=== PATIENT | female | born 1975 | race Caucasian/White ===

== ENCOUNTER 2020-08-21 13:44 | Emergency (ER) | payer SELFPAY ==
[~2020-08-21 13:44] MED LIST: ADVAIR 500/501 DISK INH; CLEOCIN HCL150 MG PO; FLORANEX / LACT1 TAB PO; K-DUR20 MEQ PO; PROAIR HFA8.5 GM INH; PROZAC10 MG PO
[2020-08-21 13:57] VITALS: Ht 154.9 cm
[2020-08-21] MEDS ORDERED: LITHIUM CARBON150 MG (13:58)
[2020-08-21 14:26] LABS: BASOPHILS 0.1 % (0-2); EOSINOPHILS 0.6 % (0-7); HEMATOCRIT 41.1 % (36.0-48.0); HEMOGLOBIN 13.4 g/dL (12-16); IMMATURE GRANULOCYTES 0.1 % (0-5); LYMPHOCYTES 6.8 % (15-50); MCH 29.5 pg (26.0-34.0); MCHC 32.6 g/dL (31.0-37.0); MCV 90.5 fL (80.0-100.0); MEAN PLATELET VOLUME 9.2 fL (7.4-10.4); MONOCYTES 6.1 % (2-11); NEUTROPHILS 86.3 % (40-80); PLATELET COUNT 269 10x3/uL (130-400); RBC 4.54 10x6/uL (4.00-5.40); RDW 13.9 % (11.5-14.5); WBC 15.8 10x3/uL (4.8-10.8)
[2020-08-21 14:28] LABS: BILIRUBIN NEGATIVE (NEGATIVE); KETONE NEGATIVE (NEGATIVE); NITRITE NEGATIVE (NEGATIVE); UROBILINOGEN NORMAL mg/dL (< 2)
[2020-08-21 14:35] LABS: ANION GAP 10.8 mmol/L (8-16); CALCIUM 9.4 mg/dL (8.5-10.1); CARBON DIOXIDE 28.8 mmol/L (21.0-32.0); CREATININE - SERUM 0.9 mg/dL (0.6-1.3); POTASSIUM - SERUM 3.6 mmol/L (3.5-5.1)
[2020-08-21 14:41] LABS: BILIRUBIN - TOTAL 0.64 mg/dL (0.2-1.3)
[2020-08-21 14:56] LABS: APTT 28.2 SECONDS (22.8-39.4); INR 0.99 (0.85-1.17)
[2020-08-21 15:12] LABS: CKMB 0.4 U/L (0.0-3.6); CREATINE KINASE 42 UL (21-215); TROPONIN-I 0.021 ng/mL (0.000-0.060)
[2020-08-21] MEDS ORDERED: MONODOX100 MG PO (18:24)
[2020-08-21 23:30] VITALS: BP 93/62
== END 2020-08-21 23:35 | disposition home or self-care (01) ==
LOC: D.ER 13:44
PROVIDERS: Family Medicine
DX: R50.9 Fever, unspecified (principal); D72.829 Elevated white blood cell count, unspecified; M79.18 Myalgia, other site; J45.909 Unspecified asthma, uncomplicated